=== PATIENT | male | born 1990 | race Hispanic/Latino ===

== ENCOUNTER 2020-11-01 15:21 | Emergency (ER) | payer SELFPAY ==
[~2020-11-01] VITALS: Ht 175.3 cm; Wt 100.7 kg
== END 2020-11-01 17:44 | disposition home or self-care (01) ==
LOC: ER 16:49
DX: S01.311A Laceration without foreign body of right ear, initial encounter (principal); W45.8XXA Other foreign body or object entering through skin, initial encounter; Y99.0 Civilian activity done for income or pay
CPT/HCPCS: 99282